=== PATIENT | male | born 1975 ===

== ENCOUNTER 2020-01-11 20:55 | Emergency (ER) | payer MEDICAID ==
[~2020-01-11] VITALS: Ht 175.3 cm; Wt 86.4 kg
[2020-01-11] MEDS ORDERED: HYDROcodone/acetaminophen 5mg/325mg tablet PO ONE (23:10)
--- NOTE | 2020-01-11 23:28 | NUR ---
CALLED [facility] [place] [address]. ETA A FEW MINS
[2020-01-11 23:31] VITALS: BP 153/96
== END 2020-01-11 23:33 | disposition home or self-care (01) ==
LOC: ER 20:56
DX: G89.18 Other acute postprocedural pain (principal); M79.604 Pain in right leg; F15.90 Other stimulant use, unspecified, uncomplicated; Z98.890 Other specified postprocedural states
CPT/HCPCS: 99282